=== PATIENT | male | born 1975 | race Caucasian/White ===

== ENCOUNTER 2021-05-06 23:43 | Emergency (ER) | payer BC, OTHER ==
[~2021-05-06] VITALS: Ht 177.8 cm; Wt 108.9 kg
[2021-05-06] MEDS ORDERED: MORPHINE SULFATE 4 MG/ML SYR/VIAL ONE (23:55)
[2021-05-06] MEDS ORDERED: ONDANSETRON HCL 4 MG/2 ML VIAL ONE (23:55)
[2021-05-07] MEDS ORDERED: IOHEXOL 300 MG/ML 100ML BOTTLE IJ ONE (00:30)
[2021-05-07] MEDS ORDERED: ONDANSETRON HCL 4 MG/2 ML VIAL IV ONE (07:30)
[2021-05-07] MEDS ORDERED: MORPHINE SULFATE 4 MG/ML SYR/VIAL IV ONE (07:30)
[2021-05-07 09:16] VITALS: BP 112/83
== END 2021-05-07 10:05 | disposition home or self-care (01) ==
LOC: ER 23:45
DX: S22.41XA Multiple fractures of ribs, right side, initial encounter for closed fracture (principal); M79.10 Myalgia, unspecified site; V43.62XA Car passenger injured in collision with other type car in traffic accident, initial encounter; Y93.89 Activity, other specified; Y92.410 Unspecified street and highway as the place of occurrence of the external cause; Y99.8 Other external cause status
CPT/HCPCS: 71260; 73060; 73070; 74177; 96374; 96375; 99285; J2270; J2405; Q9967